=== PATIENT | female | born 1945 | race Caucasian/White ===

== ENCOUNTER 2021-06-09 09:47 | Inpatient (IN) | payer OTHER ==
[~2021-06-09] VITALS: Ht 154.9 cm; Wt 68.2 kg
[2021-06-09 10:28] LABS: BASOPHILS % (AUTO) 0.1 % (0-1); EOSINOPHILS % (AUTO) 0.1 % (0-6); HEMATOCRIT 46.8 % (35.0-45.0); LYMPHOCYTES # (AUTO) 1.2 X10'3 (1.1-4.8); LYMPHOCYTES % (AUTO) 13.8 % (21-51); MEAN CORPUSCULAR HEMOGLOBIN 32.6 PG (27.0-31.0); MEAN CORPUSCULAR HGB CONC 34.2 g/dL (33.0-36.5); MEAN CORPUSCULAR VOLUME 95.3 FL (78-98); MEAN PLATELET VOLUME 8.1 FL (7.4-10.4); MONOCYTES # (AUTO) 0.5 X10'3 (0-0.9); MONOCYTES % (AUTO) 5.9 % (2-12); NEUTROPHILS # (AUTO) 6.7 X10'3 (1.8-7.7); NEUTROPHILS % (AUTO) 80.1 % (42-75); PLATELET COUNT 318 X10'3 (140-440); RED BLOOD COUNT 4.91 X10'6 (4.20-5.60); RED CELL DISTRIBUTION WIDTH 13.4 % (11.5-14.5); WHITE BLOOD COUNT 8.4 X10'3 (4.5-11.0)
[2021-06-09 10:39] LABS: D-DIMER 1.25 MG/L FEU (0-0.50)
[2021-06-09 10:42] LABS: ALANINE AMINOTRANSFERASE 37 U/L (12-78); ALBUMIN 3.9 G/DL (3.4-5.0); ALKALINE PHOSPHATASE 88 IU/L (46-116); ANION GAP 11 (8-16); ASPARTATE AMINO TRANSFERASE 22 U/L (10-37); BILIRUBIN,TOTAL 0.5 MG/DL (0.1-1.0); BLOOD UREA NITROGEN 7 MG/DL (7-18); BUN/CREATININE RATIO 8.4 (6.6-38.0); CALCIUM 9.3 MG/DL (8.5-10.1); CHLORIDE 98 MMOL/L (99-107); CREATININE 0.83 MG/DL (0.40-0.90); GLUCOSE 165 MG/DL (70-104); POTASSIUM 4.5 MMOL/L (3.5-5.1); SODIUM 138 MMOL/L (135-145); TOTAL CARBON DIOXIDE 28.9 MMOL/L (24-32); TOTAL PROTEIN 7.8 G/DL (6.4-8.2); eGFR 67 ML/MIN
[2021-06-09 10:50] LABS: MAGNESIUM 2.3 MG/DL (1.5-2.4)
[2021-06-09] MEDS ORDERED: hydrALAZINE 20mg/ml inj. IV ONE (11:50)
[2021-06-09] MEDS ORDERED: iohexol 300mg/ml 100ml inj. ONE (11:58)
[2021-06-09] MEDS ORDERED: iohexol 350MG/ML 100ml bottle IV ONE (12:00)
[2021-06-09] MEDS ORDERED: heparin 10,000 units/1 ML INJ IV PRN ×2 (14:45→15:05)
[2021-06-09] MEDS ORDERED: heparin 10,000 units/1 ML INJ IV ONE ×2 (14:45→15:05)
[2021-06-09] MEDS: heparin 25,000 UNIT/250ml bag 250 ML IV SCH (14:57)
[2021-06-09] MEDS ORDERED: diphenhydrAMINE 25mg capsule PO PRN (15:05)
[2021-06-09] MEDS ORDERED: potassium Cl 20 mEq SR tablet PO PRN ×2 (15:05)
[2021-06-09] MEDS ORDERED: morphine 2 MG/ML inj. syringe IV PRN ×2 (15:05)
[2021-06-09] MEDS ORDERED: HYDROcodone/acetaminophen 10/325mg tab PO PRN (15:05)
[2021-06-09] MEDS ORDERED: acetaminophen 325mg tablet PO PRN ×2 (15:05)
[2021-06-09] MEDS ORDERED: bisacodyl 10mg suppository rectal RC PRN (15:05)
[2021-06-09] MEDS ORDERED: HYDROcodone/acetaminophen 5mg/325mg tablet PO PRN (15:05)
[2021-06-09] MEDS ORDERED: normal saline 1000ml 1,000 ML IV SCH (15:05)
[2021-06-09] MEDS ORDERED: acetaminophen 650mg rectal suppository RC PRN (15:05)
[2021-06-09] MEDS ORDERED: magnesium 2GM in 50ml NS 50 ML IV PRN (15:05)
[2021-06-09] MEDS ORDERED: magnesium Cl slow-release 64mg tablet PO PRN (15:05)
[2021-06-09] MEDS ORDERED: heparin 25,000 UNIT/250ml bag 250 ML IV SCH (15:05)
[2021-06-09] MEDS ORDERED: magnesium hydroxide 30ml (MOM) UD suspension PO PRN (15:05)
[2021-06-09] MEDS ORDERED: magnesium 4gm in 100ml NS 100 ML IV PRN (15:05)
[2021-06-09] MEDS ORDERED: potassium CL 10mEq/100ml bag 100 ML IV PRN (15:05)
[2021-06-09] MEDS ORDERED: mag hydrox/Alum hydrox/simeth 30ml oral suspension PO PRN (15:05)
[2021-06-09] MEDS ORDERED: PERFLUTREN PROTEIN-A MICROSPHR (Optison) 0.22 MG/ML 3ML VIAL IV ONE (15:05)
[2021-06-09 18:00] VITALS: BP 216/124
[2021-06-09] MEDS ORDERED: LEVO100T9 PO (19:10)
[2021-06-09] MEDS: K and/or MAG REPLACEMENT MC SCH (19:25)
[2021-06-09] MEDS: docusate sod 100mg capsule PO SCH (19:43)
[2021-06-09] MEDS: ondansetron/PF 4mg/2ml inj IV PRN (20:41)
[2021-06-09 22:00] VITALS: BP 193/105
--- NOTE | 2021-06-10 01:02 | NUR ---
Informed Dr Macias about the patients condition, new orders received at this time.
[2021-06-10] MEDS ORDERED: furosemide 20 MG/2 ML vial IV ONE (01:05)
[2021-06-10] MEDS ORDERED: hyDRALAzine 10mg tablet PO PRN (01:05)
[2021-06-10] MEDS ORDERED: lisinopril 10 MG tablet PO ONE (01:05)
[2021-06-10 02:00] VITALS: BP 158/87
[2021-06-10 04:49] LABS: BASOPHILS % (AUTO) 0.3 % (0-1); EOSINOPHILS % (AUTO) 0.3 % (0-6); HEMOGLOBIN 15.9 g/dl (12.0-16.0); LYMPHOCYTES # (AUTO) 1.9 X10'3 (1.1-4.8); LYMPHOCYTES % (AUTO) 19.5 % (21-51); MEAN CORPUSCULAR HEMOGLOBIN 31.8 PG (27.0-31.0); MEAN CORPUSCULAR HGB CONC 33.8 g/dL (33.0-36.5); MEAN PLATELET VOLUME 8.7 FL (7.4-10.4); MONOCYTES # (AUTO) 0.9 X10'3 (0-0.9); MONOCYTES % (AUTO) 9.1 % (2-12); NEUTROPHILS # (AUTO) 6.9 X10'3 (1.8-7.7); NEUTROPHILS % (AUTO) 70.8 % (42-75); PLATELET COUNT 342 X10'3 (140-440); RED BLOOD COUNT 4.99 X10'6 (4.20-5.60); RED CELL DISTRIBUTION WIDTH 13.4 % (11.5-14.5); WHITE BLOOD COUNT 9.8 X10'3 (4.5-11.0)
[2021-06-10 05:07] LABS: ANION GAP 12 (8-16); BLOOD UREA NITROGEN 6 MG/DL (7-18); CHLORIDE 98 MMOL/L (99-107); CREATININE 0.93 MG/DL (0.40-0.90); GLUCOSE 121 MG/DL (70-104); POTASSIUM 3.9 MMOL/L (3.5-5.1); SODIUM 140 MMOL/L (135-145)
[2021-06-10 05:08] LABS: ALANINE AMINOTRANSFERASE 38 U/L (12-78); ALBUMIN 3.7 G/DL (3.4-5.0); ALKALINE PHOSPHATASE 85 IU/L (46-116); ASPARTATE AMINO TRANSFERASE 23 U/L (10-37); BILIRUBIN,TOTAL 0.7 MG/DL (0.1-1.0); BUN/CREATININE RATIO 6.5 (6.6-38.0); CALCIUM 9.2 MG/DL (8.5-10.1); CHOLESTEROL 181 MG/DL (0-200); HDL CHOLESTEROL 60 MG/DL (35-60); LDL CHOLESTEROL 100 MG/DL (50-100); MAGNESIUM 2.2 MG/DL (1.5-2.4); PHOSPHORUS 4.4 MG/DL (2.3-4.5); TOTAL PROTEIN 7.5 G/DL (6.4-8.2); TRIGLYCERIDES 115 MG/DL (20-135); eGFR 58 ML/MIN
--- NOTE | 2021-06-10 06:30 | NUR ---
Patient in room PCU 3019. I have received report from Gallo and had the opportunity to ask questions and assume patient care.
--- NOTE | 2021-06-10 06:46 | NUR ---
Problems reprioritized. Patient report given, questions answered & plan of care reviewed with Moni HURD.
[2021-06-10] MEDS ORDERED: LIDOcaine 1% (10mg/ml)w/preservative inj. 20ml MDV ONE (07:55)
[2021-06-10] MEDS: K and/or MAG REPLACEMENT MC SCH ×2 (08:00→20:00)
[2021-06-10] MEDS: docusate sod 100mg capsule PO SCH ×3 (08:00→09:24)
[2021-06-10 08:27] VITALS: BP 148/82
[2021-06-10 08:49] VITALS: BP 182/91
[2021-06-10 09:13] LABS: BFSOURCE LEFT PLEURAL FLD; PLEURAL FLUID PH 7.487 (7.63-7.65)
[2021-06-10] MEDS: levoTHYROXINE 100mcg tablet PO SCH (09:19)
[2021-06-10 10:17] LABS: BF RBC COUNT 190 /CU MM; BF WBC COUNT 820 /CU MM (0-1000); BFAPPEAR HAZY; BFCOLOR YELLOW; BFVOLUME 60 ML; LYMPHOCYTES,BODY FLUID 93 %; MONOCYTES,BODY FLUID 5 %; NEUTROPHILS,BODY FLUID 2 %
[2021-06-10 11:26] LABS: GLUCOSE,BODY FLUID 124 MG/DL; LDH,BODY FLUID 87 U/L; TOTAL PROTEIN,BODY FLUID 3.9 G/DL
[2021-06-10] MEDS: ondansetron/PF 4mg/2ml inj IV PRN (13:00)
[2021-06-10] MEDS: heparin 25,000 UNIT/250ml bag 250 ML IV SCH (16:46)
[2021-06-10] MEDS ORDERED: heparin 25,000 UNIT/250ml bag 250 ML IV SCH (17:30)
[2021-06-10 18:00] VITALS: BP 122/69
--- NOTE | 2021-06-10 18:13 | NUR ---
Problems reprioritized. Patient report given, questions answered & plan of care reviewed with Kelly HURD.
[2021-06-10] MEDS: azithromycin 250mg tablet PO SCH (20:28)
[2021-06-10] MEDS: cefTRIAXone 1g/NS 100ml IVPB 100 ML IV SCH (20:29)
[2021-06-10 22:00] VITALS: BP 147/80
[2021-06-10] MEDS ORDERED: temazepam 15mg capsule PO PRN (22:55)
[2021-06-11 02:00] VITALS: BP 123/62
[2021-06-11 06:00] VITALS: BP 136/76
[2021-06-11] MEDS: K and/or MAG REPLACEMENT MC SCH (07:13)
[2021-06-11 07:47] LABS: BASOPHILS % (AUTO) 0.4 % (0-1); EOSINOPHILS % (AUTO) 0.4 % (0-6); HEMATOCRIT 44.4 % (35.0-45.0); LYMPHOCYTES # (AUTO) 2.1 X10'3 (1.1-4.8); LYMPHOCYTES % (AUTO) 19.3 % (21-51); MEAN CORPUSCULAR HEMOGLOBIN 32.3 PG (27.0-31.0); MEAN CORPUSCULAR HGB CONC 33.8 g/dL (33.0-36.5); MEAN CORPUSCULAR VOLUME 95.7 FL (78-98); MEAN PLATELET VOLUME 9.2 FL (7.4-10.4); MONOCYTES # (AUTO) 1.1 X10'3 (0-0.9); MONOCYTES % (AUTO) 9.9 % (2-12); NEUTROPHILS # (AUTO) 7.6 X10'3 (1.8-7.7); PLATELET COUNT 279 X10'3 (140-440); RED BLOOD COUNT 4.64 X10'6 (4.20-5.60); RED CELL DISTRIBUTION WIDTH 13.6 % (11.5-14.5); WHITE BLOOD COUNT 10.9 X10'3 (4.5-11.0)
[2021-06-11] MEDS: docusate sod 100mg capsule PO SCH (07:57)
[2021-06-11] MEDS: levoTHYROXINE 100mcg tablet PO SCH (07:57)
[2021-06-11] MEDS: azithromycin 250mg tablet PO SCH (07:57)
[2021-06-11] MEDS: cefTRIAXone 1g/NS 100ml IVPB 100 ML IV SCH (07:57)
[2021-06-11 08:05] LABS: ALANINE AMINOTRANSFERASE 31 U/L (12-78); ALBUMIN 3.2 G/DL (3.4-5.0); ALBUMIN/GLOBULIN RATIO 0.9 (1.1-1.5); ALKALINE PHOSPHATASE 71 IU/L (46-116); ANION GAP 10 (8-16); ASPARTATE AMINO TRANSFERASE 26 U/L (10-37); BILIRUBIN,TOTAL 0.6 MG/DL (0.1-1.0); BLOOD UREA NITROGEN 7 MG/DL (7-18); BUN/CREATININE RATIO 9.5 (6.6-38.0); CHLORIDE 98 MMOL/L (99-107); CREATININE 0.74 MG/DL (0.40-0.90); GLUCOSE 122 MG/DL (70-104); MAGNESIUM 2.2 MG/DL (1.5-2.4); PHOSPHORUS 4.6 MG/DL (2.3-4.5); POTASSIUM 3.8 MMOL/L (3.5-5.1); SODIUM 134 MMOL/L (135-145); TOTAL CARBON DIOXIDE 26.5 MMOL/L (24-32); TOTAL PROTEIN 6.8 G/DL (6.4-8.2); eGFR 76 ML/MIN
[2021-06-11] MEDS ORDERED: POTA10TA37 PO (10:07)
[2021-06-11] MEDS ORDERED: ALBU8.5H17 INH (10:07)
[2021-06-11] MEDS ORDERED: CEFD300C3 PO (10:07)
[2021-06-11] MEDS ORDERED: APIX5TAB3 PO (10:07)
[2021-06-11] MEDS ORDERED: FURO-150 PO (10:07)
[2021-06-11] MEDS ORDERED: AZI25OT PO (10:07)
== END 2021-06-11 14:25 | disposition home or self-care (01) | DRG 175 ==
LOC: ER 09:49 → ED HOLD 15:09 → PCU 3S 17:28
PROVIDERS: ADMIT Family Medicine; ATTEND Family Medicine
PROC: B32T1ZZ Computerized Tomography (CT Scan) of Left Pulmonary Artery using Low Osmolar Contrast (ICD-10-PCS; 2021-06-09)
PROC: B3201ZZ Computerized Tomography (CT Scan) of Thoracic Aorta using Low Osmolar Contrast (ICD-10-PCS; 2021-06-09)
PROC: B32S1ZZ Computerized Tomography (CT Scan) of Right Pulmonary Artery using Low Osmolar Contrast (ICD-10-PCS; 2021-06-09)
PROC: 0W9B3ZX Drainage of Left Pleural Cavity, Percutaneous Approach, Diagnostic (ICD-10-PCS; principal; 2021-06-10)
DX: I26.99 Other pulmonary embolism without acute cor pulmonale (principal); J96.00 Acute respiratory failure, unspecified whether with hypoxia or hypercapnia; J18.9 Pneumonia, unspecified organism; J90 Pleural effusion, not elsewhere classified; J98.11 Atelectasis; C34.90 Malignant neoplasm of unspecified part of unspecified bronchus or lung; Z60.2 Problems related to living alone; Z66 Do not resuscitate; E03.9 Hypothyroidism, unspecified; F12.90 Cannabis use, unspecified, uncomplicated; R91.1 Solitary pulmonary nodule; I10 Essential (primary) hypertension; Z79.890 Hormone replacement therapy; Z80.0 Family history of malignant neoplasm of digestive organs; Z80.1 Family history of malignant neoplasm of trachea, bronchus and lung; Z86.16 Personal history of COVID-19; Z87.891 Personal history of nicotine dependence; Z90.49 Acquired absence of other specified parts of digestive tract
CPT/HCPCS: 32555; 36415; 71045; 71275; 80053; 80061; 82945; 83036; 83615; 83735; 83880; 83986; 84100; 84157; 84443; 84484; 85025; 85379; 85730; 87070; 89051; 93005; 93306; 96374; 96375; 97161; 99285; G0378; J0360; J0696; J1644; J1940; J2405; J3490; J7030; Q9956; Q9967

== ENCOUNTER 2021-06-21 22:36 | Inpatient (IN) | payer OTHER ==
[~2021-06-21] VITALS: Ht 152.4 cm; Wt 63.6 kg
[~2021-06-21 22:36] MED LIST: ALBU8.5H17 INH; APIX5TAB3 PO; AZI25OT PO; CEFD300C3 PO; FURO-150 PO; LEVO100T9 PO; POTA10TA37 PO
[2021-06-21] MEDS ORDERED: iohexol 350MG/ML 100ml bottle IV ONE (22:54)
[2021-06-21 23:09] LABS: BASOPHILS # (AUTO) 0.1 X10'3 (0-0.2); BASOPHILS % (AUTO) 0.6 % (0-1); EOSINOPHILS % (AUTO) 0.4 % (0-6); HEMATOCRIT 43.3 % (35.0-45.0); LYMPHOCYTES # (AUTO) 1.9 X10'3 (1.1-4.8); LYMPHOCYTES % (AUTO) 19.5 % (21-51); MEAN CORPUSCULAR HEMOGLOBIN 32.9 PG (27.0-31.0); MEAN CORPUSCULAR HGB CONC 34.8 g/dL (33.0-36.5); MEAN CORPUSCULAR VOLUME 94.6 FL (78-98); MEAN PLATELET VOLUME 8.1 FL (7.4-10.4); MONOCYTES # (AUTO) 0.9 X10'3 (0-0.9); NEUTROPHILS # (AUTO) 6.8 X10'3 (1.8-7.7); NEUTROPHILS % (AUTO) 70.5 % (42-75); PLATELET COUNT 382 X10'3 (140-440); RED BLOOD COUNT 4.58 X10'6 (4.20-5.60); RED CELL DISTRIBUTION WIDTH 13.2 % (11.5-14.5); WHITE BLOOD COUNT 9.6 X10'3 (4.5-11.0)
[2021-06-21 23:15] LABS: APTT 25 SECONDS (22-32)
[2021-06-21 23:16] LABS: ALANINE AMINOTRANSFERASE 65 U/L (12-78); ALBUMIN 3.5 G/DL (3.4-5.0); ALBUMIN/GLOBULIN RATIO 0.9 (1.1-1.5); ALKALINE PHOSPHATASE 77 IU/L (46-116); ANION GAP 11 (8-16); ASPARTATE AMINO TRANSFERASE 37 U/L (10-37); BILIRUBIN,TOTAL 0.4 MG/DL (0.1-1.0); BLOOD UREA NITROGEN 11 MG/DL (7-18); BUN/CREATININE RATIO 14.1 (6.6-38.0); CALCIUM 9.2 MG/DL (8.5-10.1); CHLORIDE 103 MMOL/L (99-107); CREATININE 0.78 MG/DL (0.40-0.90); GLUCOSE 94 MG/DL (70-104); POTASSIUM 4.2 MMOL/L (3.5-5.1); SODIUM 140 MMOL/L (135-145); TOTAL CARBON DIOXIDE 25.8 MMOL/L (24-32); TOTAL PROTEIN 7.3 G/DL (6.4-8.2); eGFR 72 ML/MIN
[2021-06-21] MEDS ORDERED: aspirin 325mg tablet PO ONE (23:35)
[2021-06-21] MEDS ORDERED: SYN0.088T PO (23:39)
[2021-06-21] MEDS ORDERED: FURO-150 PO (23:39)
--- NOTE | 2021-06-21 23:51 | NUR ---
Tele-neuro onlie with pt.
--- NOTE | 2021-06-21 23:51 | NUR ---
Pt pink, alert, no acute/resp distress. PIV site c/d/i s complication or adverse reaction. Bed in lowest position, wheels locked, rails up. Will continue to monitor for acute changes and further needs.
[2021-06-22] MEDS ORDERED: ALBU8.5H17 IH (00:06)
[2021-06-22] MEDS ORDERED: APIX5TAB3 PO (00:06)
[2021-06-22] MEDS ORDERED: POTA10CA44 PO (00:06)
[2021-06-22] MEDS ORDERED: FURO20TA4 PO (00:07)
[2021-06-22] MEDS ORDERED: aspirin 325mg tablet PO ONE (00:15)
[2021-06-22] MEDS ORDERED: HYDROcodone/acetaminophen 5mg/325mg tablet PO PRN (00:50)
[2021-06-22] MEDS ORDERED: diphenhydrAMINE 50 mg/ml inj IV PRN (00:50)
[2021-06-22] MEDS ORDERED: ondansetron/PF 4mg/2ml inj IV PRN (00:50)
[2021-06-22] MEDS ORDERED: ondansetron 4mg rapidly disintigrating tab PO PRN (00:50)
[2021-06-22] MEDS ORDERED: naloxone 0.4 mg/ml inj IV PRN (00:50)
[2021-06-22] MEDS ORDERED: morphine 2 MG/ML inj. syringe IV PRN ×2 (00:50)
[2021-06-22] MEDS ORDERED: mag hydrox/Alum hydrox/simeth 30ml oral suspension PO PRN (00:50)
[2021-06-22] MEDS ORDERED: bisacodyl 10mg suppository rectal RC PRN (00:50)
[2021-06-22] MEDS ORDERED: ipratropium/albuterol 3ml nebule NEB PRN (00:50)
[2021-06-22] MEDS ORDERED: normal saline 1000ml 1,000 ML IV SCH (00:50)
[2021-06-22] MEDS ORDERED: acetaminophen 650mg rectal suppository RC PRN (00:50)
[2021-06-22] MEDS ORDERED: magnesium hydroxide 30ml (MOM) UD suspension PO PRN (00:50)
[2021-06-22] MEDS ORDERED: acetaminophen 325mg tablet PO PRN ×2 (00:50)
[2021-06-22] MEDS ORDERED: diphenhydrAMINE 25mg capsule PO PRN (00:50)
--- NOTE | 2021-06-22 00:57 | NUR ---
Pt pink, alert, no acute/resp distress. PIV site c/d/i s complication or adverse reaction. Bed in lowest position, wheels locked, rails up. Will continue to monitor for acute changes and further needs. Pt able to reposition herself. Friend at bedside.
[2021-06-22] MEDS ORDERED: albuterol 2.5 MG/3 ML nebule NEB PRN (01:05)
[2021-06-22 01:26] LABS: MAGNESIUM 2.4 MG/DL (1.5-2.4); PHOSPHORUS 4.1 MG/DL (2.3-4.5)
--- NOTE | 2021-06-22 01:35 | NUR ---
Pt pink, alert, no acute/resp distress. PIV site c/d/i s complication or adverse reaction. Bed in lowest position, wheels locked, rails up. Will continue to monitor for acute changes and further needs. Pt to bathroom via wc. UA specimine collected, labeled, walked to lab. Pt place in gown upon returning to the room and reconnected to cardiac cath technician and placed monitor in night/private mode.
--- NOTE | 2021-06-22 02:25 | NUR ---
Pt pink, alert, no acute/resp distress. PIV site c/d/i s complication or adverse reaction. Bed in lowest position, wheels locked, rails up. Will continue to monitor for acute changes and further needs. Pt to bathroom via wc. UA specimine collected, labeled, walked to lab. Pt place in gown upon returning to the room and reconnected to registered nurse cardiac and placed monitor in night/private mode.
--- NOTE | 2021-06-22 03:38 | NUR ---
Pt pink, alert, no acute/resp distress. PIV site c/d/i s complication or adverse reaction. Bed in lowest position, wheels locked, rails up. Will continue to monitor for acute changes and further needs. Pt to bathroom via wc. UA specimine collected, labeled, walked to lab. Pt place in gown upon returning to the room and reconnected to operations supervisor chemical cleaning and placed monitor in night/private mode.
[2021-06-22 05:22] VITALS: BP 137/84
[2021-06-22 06:00] VITALS: BP 137/84
--- NOTE | 2021-06-22 06:48 | NUR ---
Patient in room PCU 3023. I have received report from Raquel HURD and had the opportunity to ask questions and assume patient care.
[2021-06-22] MEDS ORDERED: pantoprazole 40mg Tablet.DR PO SCH (07:30)
[2021-06-22] MEDS ORDERED: levoTHYROXINE 100mcg tablet PO SCH (08:00)
[2021-06-22] MEDS ORDERED: atorvastatin 10mg tablet PO SCH (08:00)
[2021-06-22] MEDS ORDERED: aspirin 81mg, enteric-coated 1 TAB TABLET.DR PO SCH (08:00)
[2021-06-22] MEDS ORDERED: docusate sod 100mg capsule PO SCH (08:00)
[2021-06-22 09:10] LABS: CHOL/HDL RATIO 3.7 (0.00-4.99); CHOLESTEROL 190 MG/DL (0-200); HDL CHOLESTEROL 51 MG/DL (35-60); LDL CHOLESTEROL 125 MG/DL (50-100); TRIGLYCERIDES 93 MG/DL (20-135)
[2021-06-22 11:00] VITALS: BP 144/90
[2021-06-22 15:00] VITALS: BP 158/90
[2021-06-22] MEDS ORDERED: ATOR40TA PO (15:10)
[2021-06-22] MEDS ORDERED: ASPI81TA52 PO ×2 (15:10)
[2021-06-22] MEDS ORDERED: ONDA4TAB12 PO (15:21)
[2021-06-22] MEDS ORDERED: temazepam 15mg capsule PO PRN (21:00)
== END 2021-06-22 17:17 | disposition home or self-care (01) | DRG 64 ==
LOC: ER 22:37 → ED HOLD 06-22 01:00 → PCU 3S 06-22 05:05
PROVIDERS: ADMIT Family Medicine; ATTEND Family Medicine
PROC: B3251ZZ Computerized Tomography (CT Scan) of Bilateral Common Carotid Arteries using Low Osmolar Contrast (ICD-10-PCS; principal; 2021-06-21)
PROC: B32G1ZZ Computerized Tomography (CT Scan) of Bilateral Vertebral Arteries using Low Osmolar Contrast (ICD-10-PCS; 2021-06-21)
PROC: B32R1ZZ Computerized Tomography (CT Scan) of Intracranial Arteries using Low Osmolar Contrast (ICD-10-PCS; 2021-06-21)
PROC: B3281ZZ Computerized Tomography (CT Scan) of Bilateral Internal Carotid Arteries using Low Osmolar Contrast (ICD-10-PCS; 2021-06-21)
DX: I63.89 Other cerebral infarction (principal); I26.99 Other pulmonary embolism without acute cor pulmonale; I50.32 Chronic diastolic (congestive) heart failure; G81.91 Hemiplegia, unspecified affecting right dominant side; I11.0 Hypertensive heart disease with heart failure; E78.00 Pure hypercholesterolemia, unspecified; R91.8 Other nonspecific abnormal finding of lung field; R47.81 Slurred speech; Z66 Do not resuscitate; E03.9 Hypothyroidism, unspecified; R29.810 Facial weakness; Z79.01 Long term (current) use of anticoagulants; Z79.899 Other long term (current) drug therapy
CPT/HCPCS: 36415; 70450; 70496; 70498; 70551; 71045; 80053; 80061; 82948; 83735; 83880; 84100; 85025; 85610; 85730; 87081; 92508; 92616; 93005; 93308; 96360; 97110; 97116; 97161; 99285; G0378; J7030; Q9967